=== PATIENT | male | born 1965 | race Caucasian/White ===

== ENCOUNTER 2017-01-12 23:59 | Emergency (ER) | payer OTHER ==
[2017-01-13 00:38] LABS: BASOPHIL# 0.1 X 10^3uL (0.0-0.1); BASOPHILS 1.6 % (0.0-2.0); EOSINOPHILS 3.3 % (0.0-6.0); EOSINOPHILS# 0.2 X 10^3uL (0.0-0.4); HEMATOCRIT 38.8 % (42.0-54.0); HEMOGLOBIN 12.6 g/dL (14.0-18.0); LYMPHOCYTES 35.1 % (20.0-40.0); LYMPHOCYTES# 1.8 X 10^3uL (0.8-3.8); MEAN CELL VOLUME 82.7 fL (84.0-102.0); MEAN CORPUS. HGB CONCENTRATION 32.6 g/dL (32.0-36.0); MEAN PLATELET VOLUME 8.4 fL (7.4-10.4); MONOCYTES 9.1 % (2.0-10.0); MONOCYTES# 0.5 X 10^3uL (0.2-1.0); NEUTROPHILS 50.9 % (54.0-75.0); NEUTROPHILS# 2.6 X 10^3uL (2.6-6.7); PLATELET COUNT 239 X 10^3uL (130-440); RED BLOOD COUNT 4.69 X 10^6uL (4.20-6.10); RED CELL DISTRIBUTION WIDTH 15.9 % (11.5-14.5); WHITE BLOOD COUNT 5.2 X 10^3uL (3.9-10.7)
[2017-01-13] MEDS ORDERED: ONDANSETRON ODT PREPAC 4 MG TAB.RAPDIS PO ONE (00:43)
[2017-01-13] MEDS ORDERED: HYDROcodone/APAP 5/325 MG 1 TAB TABLET PO ONE (00:43)
[2017-01-13 00:49] LABS: ALBUMIN 3.9 g/dL (3.5-5.0); ALKALINE PHOSPHATASE 64 U/L (38-126); ALT 35 U/L (21-72); AST 25 U/L (17-59); BILIRUBIN, DIRECT 0.1 mg/dL (0.0-0.4); BILIRUBIN, TOTAL 0.4 mg/dL (0.2-1.3); BLOOD UREA NITROGEN 21 mg/dL (9-20); CALCIUM 8.8 mg/dL (8.4-10.2); CHLORIDE 102 mmol/L (98-107); CREATININE 0.9 mg/dL (0.7-1.3); EST GLOMERULAR FILTRATION RATE > 60 mL/min; GLUCOSE 119 mg/dL (70-100); LIPASE 190 U/L (23-300); SODIUM 136 mmol/L (137-145); TOTAL PROTEIN 6.9 g/dL (6.3-8.2)
--- NOTE | 2017-01-13 01:15 | ER PHYSICIAN DOCUMENTATION ---
Physician Documentation [facility] Name:Anthony Harmon Age:51 yrs Sex:Male :1965 Arrival Date:01/12/2017 Time:23:59 Bed1 Private MD:Power Chong ED, [place] Disposition: 01/13/17 00:14 Discharged to Home/Self Care. Impression: Abdominal Pain, possible Gallstones. - Condition is Good. - Discharge Instructions: Biliary Calculus - BILIARY COLIC w/Gallstone (presumd). - Medical Reconciliation form form. - Follow up: Power Chong MD; When: 2 - 3 days; Reason: Continuance of care. Follow up: Mohsen Alaniz MD; When: 2 - 3 days; Reason: Continuance of care. - Problem is new. - Symptoms have improved. HPI: 01/13 00:11 This 51 yrs old Male presents to ER via Walk In with complaints of Abdominal sc Pain. 00:11 The patient presents with abdominal pain in the right upper quadrant. Onset: The sc symptoms/episode began/occurred 3 day(s) ago. The symptoms do not radiate. Associated signs and symptoms: none. The symptoms are described as achy. Modifying factors: the symptoms are aggravated by food. Severity of pain: At its worst the pain was moderate. The patient has not experienced similar symptoms in the past. Historical: - Allergies: SULFA (SULFONAMIDES); - Home Meds: 1. Testosterone - PMHx: None; - PSHx: WRIST SURGERY; - Tetanus: < 10 years. - Ebola Screening: : Patient negative for fever greater than or equal to 101.5 degrees Fahrenheit, and additional compatible Ebola Virus Disease symptoms. - Immunization history: Flu Vaccine None. - Social history: Smoking status: Patient states was never smoker of tobacco. ROS: 00:11 Constitutional: Negative for fever, chills, and weight loss. sc Eyes: Negative for injury, pain, redness, and discharge. ENT: Negative for injury, pain, and discharge. Neck: Negative for injury, pain, and swelling. Cardiovascular: Negative for chest pain, palpitations, and edema. Respiratory: Negative for shortness of breath, cough, wheezing, and pleuritic chest pain. Back: Negative for injury and pain. MS/Extremity: Negative for injury and deformity. Skin: Negative for injury, rash, and discoloration. 00:11 Neuro: Negative for headache, weakness, numbness, tingling, and seizure. sc 00:11 Abdomen/GI: Positive for abdominal pain. Exam: Constitutional: This is a well developed, well nourished patient who is awake, alert, and in no acute distress. Head/Face: Normocephalic, atraumatic. Eyes: Pupils equal round and reactive to light, extra-ocular motions intact. Lids and lashes normal. Conjunctiva and sclera are non-icteric and not injected. Cornea within normal limits. Periorbital areas with no swelling, redness, or edema. ENT: Nares patent. No nasal discharge, no septal abnormalities noted. Tympanic membranes are normal and external auditory canals are clear. Oropharynx with no redness, swelling, or masses, exudates, or evidence of obstruction, uvula midline. Mucous membranes moist. Neck: Trachea midline, no thyromegaly or masses palpated, and no cervical lymphadenopathy. Supple, full range of motion without nuchal rigidity, or vertebral point tenderness. No meningismus. Chest/axilla: Normal chest wall appearance and motion. Nontender with no deformity. No lesions are appreciated. Cardiovascular: Regular rate and rhythm with a normal S1 and S2. No gallops, murmurs, or rubs. Normal PMI, no JVD. No pulse deficits. Respiratory: Lungs have equal breath sounds bilaterally, clear to auscultation and percussion. No rales, rhonchi or wheezes noted. No increased work of breathing, no retractions or nasal flaring. Back: No spinal tenderness. No costovertebral tenderness. Full range of motion. 00:11 Skin: Warm, dry with normal turgor. Normal color with no rashes, no lesions, and no sc evidence of cellulitis. 00:11 Abdomen/GI: Inspection: abdomen appears normal, Bowel sounds: normal, Palpation: mild abdominal tenderness, in the right upper quadrant. Vital Signs: 00:05 BP 121 / 91; Pulse 91; Resp 15; Temp 97.6(O); Pulse Ox 93% on R/A; Weight 104.33 kg; rh Height 6 ft. 2 in. (187.96 cm); Pain 5/10; 01:09 BP 124 / 77; Pulse 71; Pulse Ox 91% on R/A; em1 00:05 Body Mass Index 29.53 (104.33 kg, 187.96 cm) MDM: 00:02 Patient medically screened. mn 00:12 Differential diagnosis: cholecystitis, Cholelithiasis. Data reviewed: vital signs, mn nurses notes, lab test result(s), and as a result, I will continue to observe the patient. Counseling: I had a detailed discussion with the patient and/or guardian regarding: the historical points, exam findings, and any diagnostic results supporting the discharge/admit diagnosis, lab results, the need for outpatient follow up, for a referral to a specialist, Abdominal ultrasound. Medication response: declined pain or nausea meds at this time. 00:15 ED course: Outpatient US ordered for evaluation of possible gallstones.. mn 01/13 00:43 Order name: CBC AUTO DIF, MDIF/RMOR IF IND; Complete Time: 01:03 EDMD 02 01:02 Interpretation: Normal Except: HEMATOCRIT 38.8; mild anemia. mn 01/13 00:56 Order name: BASIC METABOLIC PANEL; Complete Time: 01:03 [facility] 02 01:02 Interpretation: Normal. mn 01/13 00:56 Order name: HEPATIC PANEL; Complete Time: 01:03 [facility] 02 01:03 Interpretation: Normal. mn 01/13 00:56 Order name: LIPASE; Complete Time: 01:03 [facility] 02 01:03 Interpretation: Normal. mn 01/13 00:14 Order name: Urine Dip; Complete Time: 01:14 mn Dispensed Medications: 01:14 Drug: HYDROcodone-acetaminophen (5mg/325 mg) 1-2 tabs 1 tabs; Route: PO; 01:14 Follow up: Response: Pharmacy closed - take home med pack 01:14 Drug: Zofran 1 tablet; Route: PO; 01:14 Follow up: Response: Pharmacy closed - take home med pack Point of Care Testing: Urine Dip: 01:14 pH: 5.5; ; Specific Harvey: 1.020; Ketones: Negative; Glucose: Negative; Protein: rh Negative; Leukocytes: Negative; Nitrite: Negative ; Blood: Negative; Bilirubin: Negative ; Urobilinogen: Normal Signatures: Mohsen Neal MD MD mn Hofsess, Shelbie rh
--- NOTE | 2017-01-13 01:15 | ER NURSING DOCUMENTATION ---
Nurse's Notes [facility] Name:Anthony Harmon Age:51 yrs Sex:Male :1965 Arrival Date:01/12/2017 Time:23:59 Bed1 Private MD:oPwer Chong Diagnosis:Abdominal Pain, possible Gallstones Presentation: 01/13 00:02 Acuity: SUSANA 3 rh 00:09 Presenting complaint: Patient states: Wednesday patient had a gradual onset of RUQ after rh eating. the pain has been persistent today after eating and progressively got worse. Pt has had regular bowel movements. Transition of care: Home. 00:09 Method Of Arrival: Walk In Triage Assessment: 00:11 General: Appears in no apparent distress, Behavior is cooperative. Pain: Complains of rh pain in right upper quadrant. EENT: Oral mucosa is moist. Neuro: Level of Consciousness is awake, alert, obeys commands, Oriented to person, place, time, event. Cardiovascular: Capillary refill < 3 seconds Chest pain is denied. Respiratory: Airway is patent. GI: Abdomen is obese, Bowel sounds present X 4 quads. Abdomen is tender to palpation in right upper quadrant Denies diarrhea, nausea, vomiting. : No deficits noted. Derm: Skin is intact, is healthy with good turgor, Skin is pink, warm & dry. Historical: - Allergies: SULFA (SULFONAMIDES); - Home Meds: 1. Testosterone - PMHx: None; - PSHx: WRIST SURGERY; - Tetanus: < 10 years. - Ebola Screening: : Patient negative for fever greater than or equal to 101.5 degrees Fahrenheit, and additional compatible Ebola Virus Disease symptoms. - Immunization history: Flu Vaccine None. - Social history: Smoking status: Patient states was never smoker of tobacco. Screenin:12 Infectious Disease Risk None. Abuse screen: Denies threats or abuse. Denies injuries rh from another. Nutritional screening: No deficits noted. Assessment: 00:12 See Triage Assessment done by same RN. Vital Signs: 00:05 BP 121 / 91; Pulse 91; Resp 15; Temp 97.6(O); Pulse Ox 93% on R/A; Weight 104.33 kg; rh Height 6 ft. 2 in. (187.96 cm); Pain 5/10; 01:09 BP 124 / 77; Pulse 71; Pulse Ox 91% on R/A; em1 00:05 Body Mass Index 29.53 (104.33 kg, 187.96 cm) ED Course: 00:00 Patient arrived in ED. em2 00:00 Poewr Chong MD is Private Physician. em2 00:00 Notified ED Physician of patient's arrival and chief complaint. Dr. Neal notified. 00:02 Mohsen Neal MD is Attending Physician. mi 00:02 Shelbie Monsalve is Primary Nurse. 00:02 Triage completed. 00:13 Power Chong MD is Referral Physician. mi 00:13 Mohsen Alaniz MD is Referral Physician. mi 00:13 Valuables Remains with patient Patient has correct armband on for positive rh identification. Bed in low position. Call light in reach. Side rails up X 1. Family accompanied patient. 00:24 Lab draw - blood work. Administered Medications: 01:14 Drug: HYDROcodone-acetaminophen (5mg/325 mg) 1-2 tabs 1 tabs; Route: PO; 01:14 Follow up: Response: Pharmacy closed - take home med pack 01:14 Drug: Zofran 1 tablet; Route: PO; 01:14 Follow up: Response: Pharmacy closed - take home med pack Point of Care Testing: Urine Dip: 01:14 pH: 5.5; ; Specific Lucas: 1.020; Ketones: Negative; Glucose: Negative; Protein: rh Negative; Leukocytes: Negative; Nitrite: Negative ; Blood: Negative; Bilirubin: Negative ; Urobilinogen: Normal Outcome: 00:14 Discharge ordered by . mi 01:14 Discharged to home ambulatory, with significant other. 01:14 Condition: stable 01:14 Discharge Assessment: Patient awake, alert and oriented x 3. No cognitive and/or functional deficits noted. Patient verbalized understanding of disposition instructions. 01:14 Discharge instructions given to patient, significant other, Instructed on discharge instructions, follow up and referral plans. Demonstrated understanding of instructions, medications. 01:15 Patient left the ED. 01/14 09:00 Discharge F/U Call: Unable to reach: no answer ke Signatures: Mohsen Neal MD MD mi Paula-tech, Michelle-tech em1 Paula-reg, Michelle-reg em2 Shelbie Monsalve Mihai, Lashell, RN RN ke
== END 2017-01-13 01:15 | disposition home or self-care (01) ==
LOC: ER 23:59
DX: R10.11 Right upper quadrant pain (principal)
CPT/HCPCS: 36415; 80048; 80076; 83690; 85025; 99283